=== PATIENT | female | born 1970 | race Caucasian/White ===

== ENCOUNTER 2021-08-19 14:15 | Outpatient (CLI) | payer OTHER | END 2021-08-19 14:16 | disposition home or self-care (01) | LOC: CSHULT 14:15 | PROVIDERS: ATTEND Internal Medicine | DX: N92.6 Irregular menstruation, unspecified (principal); R93.89 Abnormal findings on diagnostic imaging of other specified body structures; N83.201 Unspecified ovarian cyst, right side | CPT/HCPCS: 76856 ==

== ENCOUNTER 2021-11-10 12:05 | Outpatient (CLI) | payer OTHER | END 2021-11-10 12:06 | disposition home or self-care (01) | LOC: CSHLAB 12:05 | PROVIDERS: ATTEND Internal Medicine Gastroenterology | DX: Z20.822 Contact with and (suspected) exposure to COVID-19 (principal); Z12.11 Encounter for screening for malignant neoplasm of colon | CPT/HCPCS: U0003; U0005 ==

== ENCOUNTER 2021-11-13 07:19 | Day surgery (SDC) | payer OTHER ==
[2021-11-11 13:28] VITALS: BMI 35.2
[2021-11-13] MEDS ORDERED: Lidocaine 1% MPF 2 ML VIAL ONE (08:58)
[2021-11-13] MEDS ORDERED: PROPOFOL 20 ML ONE (09:40)
[2021-11-13] MEDS ORDERED: Lidocaine 1% PF 5 ML VIAL ONE (09:41)
== END 2021-11-13 10:55 | disposition home or self-care (01) ==
LOC: CSHSDC 07:19
PROVIDERS: ATTEND Internal Medicine Gastroenterology
PROC: 0DJD8ZZ Inspection of Lower Intestinal Tract, Via Natural or Artificial Opening Endoscopic (ICD-10-PCS; principal; 2021-11-13)
DX: Z12.11 Encounter for screening for malignant neoplasm of colon (principal); K64.9 Unspecified hemorrhoids; I10 Essential (primary) hypertension; E03.9 Hypothyroidism, unspecified; E78.5 Hyperlipidemia, unspecified; G43.909 Migraine, unspecified, not intractable, without status migrainosus; M79.7 Fibromyalgia; E66.9 Obesity, unspecified; Z68.35 Body mass index [BMI] 35.0-35.9, adult; Z79.890 Hormone replacement therapy; Z79.899 Other long term (current) drug therapy
CPT/HCPCS: J2704

== ENCOUNTER 2022-01-20 11:58 | Outpatient (CLI) | payer OTHER | END 2022-01-20 11:59 | disposition home or self-care (01) | LOC: CSHRAD 11:58 | PROVIDERS: ATTEND Internal Medicine | DX: M53.3 Sacrococcygeal disorders, not elsewhere classified (principal) | CPT/HCPCS: 72100 ==